=== PATIENT | female | born 1980 | race African-American/Black ===

== ENCOUNTER 2016-12-14 10:46 | Emergency (ER) | payer MEDICAID ==
[~2016-12-14] VITALS: Ht 167.6 cm; Wt 54.0 kg
[2016-12-14] MEDS ORDERED: KETOROLAC 60MG/2ML VIAL IM ONE (12:15)
[2016-12-14 13:12] VITALS: BP 120/72
== END 2016-12-14 13:14 | disposition home or self-care (01) ==
LOC: ER 10:46
DX: G44.209 Tension-type headache, unspecified, not intractable (principal)
CPT/HCPCS: 81025; 96372; 99283; J1885; Z7610

== ENCOUNTER 2017-01-24 12:05 | Emergency (ER) | payer MEDICAID ==
[~2017-01-24] VITALS: Ht 170.2 cm; Wt 66.0 kg
[2017-01-24 13:02] LABS: BASOPHILS % 0.2 % (0.0-2.0); EOSINOPHILS % 0.8 % (0.0-5.0); HEMATOCRIT. 23.8 % (36.0-48.0); HEMOGLOBIN. 7.5 g/dL (12.0-16.0); LYMPHOCYTES % 8.7 % (20.0-50.0); MEAN CORPUSCULAR HEMOGLOBIN 22.1 pg (28.0-32.0); MEAN CORPUSCULAR VOLUME 70.1 fL (81.0-99.0); MEAN PLATELET VOLUME 6.3 fl (7.4-10.4); NEUTROPHILS % 82.3 % (40.0-76.0); PLATELET 665 x1000/uL (130-400); RED BLOOD CELL COUNT 3.39 mill/uL (4.2-5.4); RED CELL DISTRIBUTION WIDTH 22.4 % (11.6-14.6)
[2017-01-24 13:09] LABS: CHLORIDE 105 mEq/L (98-107)
[2017-01-24 13:10] LABS: INR 1.2; PROTHROMBIN TIME 12.5 sec (9.4-11.6)
[2017-01-24 13:13] LABS: CARBON DIOXIDE 23 mEq/L (21-32)
[2017-01-24] MEDS ORDERED: KETOROLAC 30MG/ML VIAL IV STA (13:28)
[2017-01-24] MEDS ORDERED: MORPHINE SULFATE 4 MG/ML CPJ (NOT FOR IM USE) IV STA (13:28)
[2017-01-24] MEDS ORDERED: ONDANSETRON HCL 4MG/2ML VIAL IV STA (13:28)
[2017-01-24 13:32] LABS: PLATELET ESTIMATE INCREASED
[2017-01-24] MEDS ORDERED: SODIUM CHLORIDE 0.9% 1,000 ML IV ONE (15:55)
[2017-01-24] MEDS ORDERED: ACETAMINOPHEN WITH CODEINE 300/30MG TABLET PO ONE (16:00)
[2017-01-24 16:31] LABS: HCG SCREEN NEGATIVE
[2017-01-24 16:33] VITALS: BP 121/69
== END 2017-01-24 16:52 | disposition home or self-care (01) ==
LOC: ER 12:15
DX: B34.9 Viral infection, unspecified (principal)
CPT/HCPCS: 36415; 80053; 84703; 85025; 85610; 96374; 96375; 99284; J1885; J2270; J2405; J7030; Z7610

== ENCOUNTER 2017-03-13 03:44 | Emergency (ER) | payer MEDICAID ==
[~2017-03-13] VITALS: Ht 157.5 cm; Wt 59.0 kg
[2017-03-13] MEDS ORDERED: MORPHINE SULFATE 4 MG/ML CPJ (NOT FOR IM USE) IV STA ×2 (04:28→05:53)
[2017-03-13] MEDS ORDERED: ONDANSETRON HCL 4MG/2ML VIAL IV STA (04:28)
[2017-03-13] MEDS ORDERED: DIPHENHYDRAMINE 50MG/ML VIAL IV ONE ×2 (04:30→07:00)
[2017-03-13] MEDS ORDERED: MORPHINE SULFATE 10 MG/ML CPJ IV STA ×2 (04:41→06:03)
[2017-03-13] MEDS ORDERED: MORPHINE SULFATE 10 MG/ML CPJ IV SCH (04:45)
[2017-03-13] MEDS ORDERED: SODIUM CHLORIDE 0.9% 1,000 ML IV ONE (05:53)
[2017-03-13 06:28] LABS: HEMATOCRIT. 28.1 % (36.0-48.0); HEMOGLOBIN. 8.9 g/dL (12.0-16.0); MEAN CORPUSCULAR HEMOGLOBIN 24.1 pg (28.0-32.0); MEAN CORPUSCULAR VOLUME 76.1 fL (81.0-99.0); MEAN PLATELET VOLUME 6.8 fl (7.4-10.4); PLATELET 572 x1000/uL (130-400); RED BLOOD CELL COUNT 3.69 mill/uL (4.2-5.4); RED CELL DISTRIBUTION WIDTH 20.6 % (11.6-14.6)
[2017-03-13 06:37] LABS: CARBON DIOXIDE 30 mEq/L (21-32)
[2017-03-13 07:21] LABS: CHLORIDE 102 mEq/L (98-107)
[2017-03-13 07:30] LABS: PLATELET ESTIMATE INCREASED
[2017-03-13 12:16] VITALS: BP 121/73
== END 2017-03-13 12:16 | disposition home or self-care (01) ==
LOC: ER 03:45
DX: G89.29 Other chronic pain (principal); M54.5 Low back pain; M19.90 Unspecified osteoarthritis, unspecified site
CPT/HCPCS: 36415; 72148; 80048; 81025; 85025; 85651; 86140; 96361; 96374; 96375; 96376; 99285; J1200; J2270; J2405; J7030; Z7610